=== PATIENT | female | born 1965 | race Caucasian/White ===

== ENCOUNTER 2017-02-12 20:26 | Emergency (ER) | payer BC ==
[~2017-02-12] VITALS: Ht 165.1 cm; Wt 107.9 kg
[2017-02-12 20:32] VITALS: BP 126/83; PULSE 65; RESP 18; TEMP 97.9; O2SAT 97
[2017-02-12] MEDS ORDERED: CITA20TA4 PO (20:48)
[2017-02-12] MEDS ORDERED: OXYC-395 PO (20:48)
[2017-02-12] MEDS ORDERED: b/p med PO (20:48)
[2017-02-12] MEDS ORDERED: CLON1 PO (20:48)
[2017-02-12] MEDS ORDERED: DOXE50CA3 PO (20:48)
[2017-02-12] MEDS ORDERED: ZANA2CAP PO (20:48)
[2017-02-12] MEDS ORDERED: ZITHTAB PO (21:02)
--- NOTE | 2017-02-12 21:04 | PD ---
HPI Chief Complaint: Cold / Flu Symptoms Time Seen by Provider: 20:55 Travel History International Travel<30 days: No Contact w/Intl Traveler<30days: No Traveled to known affect area: No History of Present Illness HPI 51-year-old female presents to the emergency department for evaluation of cough , congestion, sore throat for 2 weeks. Patient has not followed up with her primary care physician or been on antibiotics. Patient with history of "mental health issues", chronic back pain. Patient denies any fevers. She states she did have chills couple times in the past couple of weeks. No chest pain. No abdominal pain. Nausea, vomiting, diarrhea. PFSH Past Medical History Bipolar Disorder: Yes Anxiety: Yes Depression: Yes Diminished Hearing: No Hypertension: Yes Medical other: Yes (sees pain management) Musculoskeletal: Yes (chronic back neck knee shoulder pain) Immunizations Current: No Tetanus Vaccination: > 5 Years Influenza Vaccination: No ?: Not Past Surgical History Abdominal Surgery: Yes (gastric sleeve) Hysterectomy: Yes Social History Alcohol Use: No Tobacco Use: Yes (1/2) Substance Use: No Allergies-Medications (Allergen,Severity, Reaction): Coded Allergies: iodine (Verified Allergy, Intermediate, Hives, 02/12/17) Reported Meds & Prescriptions Reported Meds & Active Scripts Active Reported [b/p med] 1 Tab PO DAILY Oxycodone (Oxycodone HCl) 10 Mg Tab 10 Mg PO Q6H PRN Zanaflex (Tizanidine HCl) 2 Mg Cap 2 Mg PO TID Klonopin (Clonazepam) 1 Mg Tab 1 Mg PO TID Doxepin (Doxepin HCl) 50 Mg Cap 50 Mg PO HS Citalopram (Citalopram Hydrobromide) 20 Mg Tab 20 Mg PO DAILY Review of Systems Except as stated in HPI: all other systems reviewed are Neg Physical Exam Narrative GENERAL: Well-nourished, well-developed female patient, afebrile. Vital signs stable. SKIN: Focused skin assessment warm/dry. HEAD: Normocephalic. Atraumatic. EYES: No scleral icterus. No injection or drainage. NECK: Supple, trachea midline. No JVD or lymphadenopathy. CARDIOVASCULAR: Regular rate and rhythm without murmurs, gallops, or rubs. RESPIRATORY: Breath sounds equal bilaterally. No accessory muscle use. Lungs sounds are clear to auscultation. GASTROINTESTINAL: Abdomen soft, non-tender, nondistended. MUSCULOSKELETAL: No cyanosis, or edema. BACK: Nontender without obvious deformity. No CVA tenderness. Data Data Last Documented VS Vital Signs Date Time Temp Pulse Resp B/P (MAP) Pulse Ox O2 Delivery O2 Flow Rate FiO2 02/12/17 20:42 97 Room Air 02/12/17 20:32 97.9 65 18 126/83 (97) MDM Medical Decision Making Medical Screen Exam Complete: Yes Emergency Medical Condition: Yes Medical Record Reviewed: Yes Differential Diagnosis URI versus bronchitis versus pneumonia Narrative Course 51-year-old female presents to the emergency department for evaluation of cold symptoms for 2 weeks. Vital signs are stable. His exam is reassuring. Due to the length of symptoms without improvement, the patient started on a Z-Davon. She is encouraged to follow-up her primary care physician. She is to return here for any acute worsening of symptoms. The patient was discharged in stable condition with instructions, including return instructions and follow up instructions. Diagnosis Primary Impression: Upper respiratory infection Qualified Codes: J06.9 - Acute upper respiratory infection, unspecified Referrals: Primary Care Physician call for appointment Patient Instructions: General Instructions, Upper Respiratory Infection (ED) Additional Instructions: Take antibiotic as directed until gone. Follow-up with your primary care physician. Return to the emergency department for any acute worsening of symptoms. Med/Other Pt SpecificInfo: Prescription(s) given Scripts Azithromycin (Zithromax Z-Davon) 250 Mg Dspk 250 MG PO DIRECTED for Infection, #1 DSPK 0 Refills 500 MG (2 tabs) day 1, then 1 tab days 2-5. Prov: Jacque Harper 02/12/17 Disposition: 01 DISCHARGE HOME Condition: Stable Jacque Harper Feb 12, 2017 21:04
== END 2017-02-12 21:08 | disposition home or self-care (01) ==
LOC: PHEFT 20:26
DX: J06.9 Acute upper respiratory infection, unspecified (principal); F17.200 Nicotine dependence, unspecified, uncomplicated; I10 Essential (primary) hypertension
CPT/HCPCS: 99283